=== PATIENT | female | born 1995 | race Caucasian/White ===

== ENCOUNTER 2022-02-15 23:36 | Emergency (ER) | payer BC ==
[2022-02-16 03:10] LABS: Fetal Membranes Rupture No Membranes Rupture (No Rupture)
[2022-02-16 19:19] LABS: Chlamydia by PCR Not Detected (NotDetected); GC by PCR Not Detected (NotDetected)
== END 2022-02-16 04:04 | disposition home or self-care (01) ==
LOC: CSHERS 23:36
DX: O99.891 Other specified diseases and conditions complicating pregnancy (principal); N89.8 Other specified noninflammatory disorders of vagina; Z3A.18 18 weeks gestation of pregnancy
CPT/HCPCS: 84112; 87480; 87491; 87510; 87591; 87660; 99284